=== PATIENT | female | born 1965 | race Two or more races ===

== ENCOUNTER → 2022-12-06 | Outpatient (CLI) | payer MEDICAID | END | disposition home or self-care (01) | LOC: RT 13:04 | PROVIDERS: ATTEND Internal Medicine Pulmonary Disease | DX: J45.40 Moderate persistent asthma, uncomplicated (principal); R06.02 Shortness of breath; Z79.899 Other long term (current) drug therapy | CPT/HCPCS: 94060; 94727; 94729 ==

== ENCOUNTER 2025-03-15 15:16 | Outpatient (CLI) | payer MEDICAID | END 2025-03-15 17:00 | disposition home or self-care (01) | LOC: RT 15:16 | PROVIDERS: ATTEND Internal Medicine Pulmonary Disease | DX: J44.89 Other specified chronic obstructive pulmonary disease (principal); J45.50 Severe persistent asthma, uncomplicated; R05.3 Chronic cough | CPT/HCPCS: 94060; 94729 ==